=== PATIENT | male | born 1985 | race African-American/Black ===

== ENCOUNTER 2024-04-07 18:27 | Emergency (ER) | payer OTHER, SELFPAY ==
--- NOTE | ~2024-04-07 | XR_ITS ---
EXAM: XR finger 3rd LT min 2V DATE: 04/07/2024 18:58 HISTORY: jammed 03/13/24 pain middle phalange . COMPARISON: None available. FINDINGS: Normal mineralization. No fracture or dislocation. No lytic or blastic lesion. Joint space s are maintained. No erosion or periosteal change. Soft tissues within normal limits. IMPRESSION: No acute osseous finding in the left third digit. Reviewed, dictated and finalized at location K.
[2024-04-07 18:48] VITALS: BP 155/110; PULSE 80; RESP 16; TEMP 36.9; O2SAT 100
--- NOTE | 2024-04-07 18:49 | ED.UPPEXIN ---
HPI - Extremity Injury (Upper) General Chief Complaint: Extremity Injury, Upper Stated Complaint: Jammed finger/left Time Seen by Provider: 04/07/24 19:05 Source: patient, RN notes reviewed and old records reviewed Mode of arrival: ambulatory Limitations: no limitations History of Present Illness HPI narrative: 39 year old male presents with complaints of jamming his left middle finger about 3 weeks ago with pain from the PIP to the tip of his finger.. He states that he has been wearing a splint to his finger but he continues to have some swelling to the middle region of his left middle finger area; He reports that he has some drooping of his left middle finger from the DIP to the tip of his finger.. He is concerned because he is required to type a lot at his job. MD complaint: injury to: left and finger (middle finger) Onset (ago): week(s) (3) Severity scale (1-10): 1 Treatments prior to arrival: splint Related Data Home Medications Medication Instructions Recorded Confirmed dextroamphetamine-amphetamine 20 20 mg DIRECTED 04/07/24 04/07/24 mg tablet (Adderall) Allergies Allergy/AdvReac Type Severity Reaction Status Date / Time No Known Allergies Allergy Verified 04/07/24 19:02 Review of Systems Review of Systems: CONSTITUTIONAL: Denies fever, chills, or sweats. EYES: Denies visual changes, redness, or discharge. ENT: Denies rhinorrhea, congestion, sore throat, or otalgia. CARDIOVASCULAR: Denies chest pain, palpitations, or edema. RESPIRATORY: Denies cough or dyspnea. GASTROINTESTINAL: Denies abdominal pain, nausea, vomiting, or diarrhea. GENITOURINARY: Denies dysuria or hematuria. SKIN: Denies rash or itching. MUSCULOSKELETAL: Denies back pain, positive for pain to PIP joint to tip of finger left middle finger, or myalgia. NEUROLOGIC: Denies headache, numbness, or weakness. PSYCHIATRIC: Denies anxiety or depression. All systems reviewed & are unremarkable except as noted in HPI and below PMFSH Past Medical History Medical History (Updated 04/08/24 @ 07:26 by Neida Knox NP) ADHD (attention deficit hyperactivity disorder) Surgical History Surgical History (Updated 04/08/24 @ 07:23 by Neida Knox NP) H/O vasectomy Family History Family History (Updated 04/08/24 @ 07:23 by Neida Knox NP) Other Hypertension Social History Social History (Updated 04/08/24 @ 07:18 by Neida Knox NP) Smoking status: Never smoker Alcohol intake: current Alcohol use details: social Substance use type: does not use Living arrangements: with family Gender identity (if verbalized by the patient): Male Comments At time of signature, agree with nursing past medical, surgical, social and family history. There is no relevant family history pertinent to the presenting complaint Exam Narrative: GENERAL: Well-appearing, well-nourished, and in no acute distress. HEAD: Normocephalic, atraumatic. EYES: PERRLA and EOMI. ENT: Nares clear, no rhinorrhea or epistaxis. Mucous membranes moist. NECK: Supple. no lymphadenopathy CHEST: Clear to auscultation. No respiratory distress. HEART: Regular rate and rhythm. No murmur heard. Normal peripheral pulses. ABDOMEN: Soft, nontender, nondistended, normal active bowel sounds. EXTREMITIES: Normal range of motion. No edema.pain from PIP to tip of his left middle finger with some swelling to middle aspect of his finger, drooping of his finger from the DIP to tip of his finger, strong left radial pulse, patient reports no tingling or numbness of his finger. SKIN: Warm, dry, no rash. NEURO: No focal deficits. Alert and oriented x3. Course Course Emergency Course: Patient is aware of diagnosis, understands and agrees to treatment plan.? Anticipatory guidance given.? Patient agrees to follow-up as directed and is aware of reasons to seek care at the emergency department. Portions of this record may have been created with voice recognit
[2024-04-07 19:45] VITALS: BP 167/110
== END 2024-04-07 19:45 | disposition home or self-care (01) ==
PROVIDERS: Emergency Provider Registered Nurse; PCP Internal Medicine
DX: S69.82XA Other specified injuries of left wrist, hand and finger(s), initial encounter (principal); X58.XXXA Exposure to other specified factors, initial encounter; F90.9 Attention-deficit hyperactivity disorder, unspecified type; Z98.52 Vasectomy status
CPT/HCPCS: 73140; 99203; G0463